=== PATIENT | male | born 2000 | race Two or more races ===

== ENCOUNTER 2022-04-02 23:01 | Emergency (ER) | payer SELFPAY ==
[~2022-04-02] VITALS: Ht 170.2 cm; Wt 73.9 kg
[2022-04-03] MEDS ORDERED: NAPR-837 PO (07:37)
[2022-04-03 07:52] VITALS: BP 121/70
[2022-04-03 09:28] LABS: GC DNA AMPLIFICATION NEGATIVE (NEGATIVE)
== END 2022-04-03 07:55 | disposition home or self-care (01) ==
LOC: M ED 23:01 → EDSEX 23:01 → M ED 04-03 07:55
DX: N43.3 Hydrocele, unspecified (principal); N50.812 Left testicular pain